=== PATIENT | male | born 1960 | race Caucasian/White ===

== ENCOUNTER 2017-12-18 20:17 | Inpatient (IN) | payer OTHER, MEDICAID ==
[~2017-12-18] VITALS: Ht 177.8 cm; Wt 59.0 kg
[2017-12-18] MEDS ORDERED: SODIUM CHLORIDE 0.9% 1,000 ML IV ONE (21:28)
[2017-12-18] MEDS ORDERED: INSULIN REGULAR (HUMULIN R) 300UNITS/3ML IV ONE (21:30)
[2017-12-18 22:15] LABS: BETA HYDROXYBUTYRATE 0.1 mMol/L (0.0-0.3); CHLORIDE 100 mEq/L (98-107); TROPONIN I 0.06 ng/mL (0.00-0.04)
[2017-12-18 22:47] LABS: HEMATOCRIT. 25.3 % (42.0-52.0); MEAN CORPUSCULAR HEMOGLOBIN 27.1 pg (28.0-32.0); MEAN CORPUSCULAR VOLUME 85.2 fL (80.0-94.0); MEAN PLATELET VOLUME 8.1 fl (7.4-10.4); PLATELET 252 x1000/uL (130-400); RED BLOOD CELL COUNT 2.97 mill/uL (4.7-6.1); RED CELL DISTRIBUTION WIDTH 18.9 % (11.6-14.6)
[2017-12-18 23:19] LABS: PLATELET ESTIMATE NORMAL
[2017-12-18] MEDS ORDERED: DEXTROSE 50% WATER 50ML SYRINGE IV NR (23:45)
[2017-12-18] MEDS ORDERED: SODIUM POLYSTYRENE SULFONATE 15 G/60 ML BOT PO NR (23:45)
[2017-12-18] MEDS ORDERED: CALCIUM CHLORIDE 1GM/10ML SYR IV NR (23:45)
[2017-12-18] MEDS ORDERED: ASPIRIN 325MG TABLET PO NR (23:45)
[2017-12-18] MEDS ORDERED: INSULIN REGULAR (HUMULIN R) 300UNITS/3ML IV NR (23:45)
[2017-12-18] MEDS ORDERED: SODIUM BICARBONATE 8.4% 1 MEQ/ML 50ML SYR IV NR (23:45)
[2017-12-19 10:57] VITALS: BP 154/49
[2017-12-19] MEDS ORDERED: ONDANSETRON HCL 4MG/2ML VIAL IV PRN (11:30)
[2017-12-19] MEDS ORDERED: HYDROCODONE/ACETAMINOPHEN 5/325MG TABLET PO PRN (11:30)
[2017-12-19] MEDS ORDERED: ACETAMINOPHEN 325MG TABLET PO PRN (11:30)
[2017-12-19] MEDS ORDERED: CLONIDINE 0.1MG TABLET PO PRN (11:30)
[2017-12-19] MEDS ORDERED: DEXTROSE 50% WATER 50ML SYRINGE IV PRN ×2 (11:45→13:15)
[2017-12-19 12:00] VITALS: BP 164/55
[2017-12-19] MEDS: ENOXAPARIN 30MG/0.3ML SYR SUBCUT SCH (12:24)
[2017-12-19] MEDS: BLOOD SUGAR DIAGNOSTIC STRIP TEST SCH ×3 (12:27→21:00)
[2017-12-19] MEDS ORDERED: INSULIN LISPRO 100 UNITS/ML SUBCUT SCH (12:50)
[2017-12-19] MEDS ORDERED: LANS30CA55 PO (13:31)
[2017-12-19] MEDS ORDERED: TRAM50TA3 PO (13:31)
[2017-12-19] MEDS ORDERED: AMLO10TA80 PO (13:31)
[2017-12-19] MEDS ORDERED: DOCU-150 PO (13:31)
[2017-12-19] MEDS ORDERED: METO-293 PO (13:31)
[2017-12-19] MEDS ORDERED: TERA2CAP4 PO (13:31)
[2017-12-19] MEDS ORDERED: MAGN400T26 PO (13:31)
[2017-12-19] MEDS ORDERED: MULT-1146 PO (13:31)
[2017-12-19] MEDS ORDERED: PROG1 PO (13:31)
[2017-12-19] MEDS ORDERED: ASPI-1159 PO (13:31)
[2017-12-19] MEDS ORDERED: PRED1TAB PO (13:31)
[2017-12-19] MEDS ORDERED: LABE300T PO (13:31)
[2017-12-19] MEDS ORDERED: CELL2 PO (13:31)
[2017-12-19] MEDS ORDERED: LANTUSUD SUBCUT (13:31)
[2017-12-19] MEDS ORDERED: OXYB5TAB11 PO (13:31)
[2017-12-19] MEDS ORDERED: INSU100I7 SQ (13:31)
[2017-12-19] MEDS ORDERED: METOCLOPRAMIDE HCL 10MG TABLET PO PRN ×2 (14:00→15:00)
[2017-12-19] MEDS ORDERED: OXYBUTYNIN CHLORIDE 5MG TABLET PO PRN (14:00)
[2017-12-19] MEDS ORDERED: TRAMADOL 50MG TABLET PO PRN (14:00)
[2017-12-19] MEDS: PREDNISONE 10MG TABLET PO SCH ×2 (15:03→17:05)
[2017-12-19] MEDS: LABETALOL HCL 300MG TABLET PO SCH (15:03)
[2017-12-19] MEDS: MYCOPHENOLATE MOFETIL 500MG TABLET PO SCH ×2 (15:03→23:37)
[2017-12-19] MEDS: TACROLIMUS 1MG CAPSULE PO SCH ×2 (15:03→23:36)
[2017-12-19] MEDS: ASPIRIN 81MG EC TABLET PO SCH (15:03)
[2017-12-19] MEDS: AMLODIPINE 10MG TABLET PO SCH (15:04)
[2017-12-19 16:00] VITALS: BP 137/46
[2017-12-19 16:01] LABS: TROPONIN I 0.07 ng/mL (0.00-0.04)
[2017-12-19] MEDS: DOCUSATE SODIUM 100MG CAPSULE PO SCH (17:05)
[2017-12-19] MEDS: MAGNESIUM OXIDE 400MG TABLET PO SCH (17:05)
[2017-12-19] MEDS: INSULIN LISPRO 100 UNITS/ML SUBCUT SCH ×2 (18:26→23:40)
[2017-12-19 20:30] VITALS: BP 134/47
[2017-12-19] MEDS ORDERED: INSULIN GLARGINE UD 100 UNITS/ML SYR SUBCUT SCH (22:00)
[2017-12-19 23:30] LABS: TROPONIN I 0.07 ng/mL (0.00-0.04)
[2017-12-20] VITALS (8 sets, daily range): BP systolic 139–166; BP diastolic 49–58
[2017-12-20] MEDS: LABETALOL HCL 300MG TABLET PO SCH ×3 (01:37→14:54)
[2017-12-20 05:56] LABS: HEMATOCRIT. 27.3 % (42.0-52.0); HEMOGLOBIN. 8.8 g/dL (14.0-18.0); MEAN CORPUSCULAR HEMOGLOBIN 27.4 pg (28.0-32.0); MEAN CORPUSCULAR VOLUME 84.6 fL (80.0-94.0); MEAN PLATELET VOLUME 8.5 fl (7.4-10.4); PLATELET 269 x1000/uL (130-400); RED BLOOD CELL COUNT 3.23 mill/uL (4.7-6.1); RED CELL DISTRIBUTION WIDTH 19.1 % (11.6-14.6)
[2017-12-20 06:33] LABS: T4 FREE 0.77 ng/dL (0.76-1.46)
[2017-12-20] MEDS ORDERED: LANSOPRAZOLE 30MG DR CAPSULE PO SCH (07:20)
[2017-12-20] MEDS: BLOOD SUGAR DIAGNOSTIC STRIP TEST SCH ×3 (07:57→17:14)
[2017-12-20] MEDS: MAGNESIUM OXIDE 400MG TABLET PO SCH ×2 (08:46→16:37)
[2017-12-20] MEDS: TACROLIMUS 1MG CAPSULE PO SCH ×2 (08:46→20:55)
[2017-12-20] MEDS: MYCOPHENOLATE MOFETIL 500MG TABLET PO SCH ×2 (08:46→20:57)
[2017-12-20] MEDS: DOCUSATE SODIUM 100MG CAPSULE PO SCH ×2 (08:46→16:37)
[2017-12-20] MEDS: ASPIRIN 81MG EC TABLET PO SCH (08:46)
[2017-12-20] MEDS: PREDNISONE 10MG TABLET PO SCH ×2 (08:47→16:37)
[2017-12-20] MEDS: AMLODIPINE 10MG TABLET PO SCH (08:47)
[2017-12-20] MEDS: INSULIN LISPRO 100 UNITS/ML SUBCUT SCH ×3 (08:48→18:29)
[2017-12-20] MEDS: ENOXAPARIN 30MG/0.3ML SYR SUBCUT SCH (08:48)
[2017-12-20 16:43] LABS: PLATELET ESTIMATE NORMAL
== END 2017-12-20 22:10 | DRG 438 ==
LOC: ER 20:39 → EDBEDREQ 23:50 → EDBEDREQTM 23:50 → EDBEDREQSVC 23:55 → 6WST 12-19 00:35 → ENRESERV 12-19 06:56
PROVIDERS: ADMIT Internal Medicine; ATTEND Internal Medicine
PROC: 5A1D70Z Performance of Urinary Filtration, Intermittent, Less than 6 Hours Per Day (ICD-10-PCS; principal; 2017-12-19)
PROC: 5A1D70Z Performance of Urinary Filtration, Intermittent, Less than 6 Hours Per Day (ICD-10-PCS; 2017-12-20)
DX: K85.90 Acute pancreatitis without necrosis or infection, unspecified (principal); N18.6 End stage renal disease; E11.22 Type 2 diabetes mellitus with diabetic chronic kidney disease; I12.0 Hypertensive chronic kidney disease with stage 5 chronic kidney disease or end stage renal disease; E87.1 Hypo-osmolality and hyponatremia; Z94.0 Kidney transplant status; E11.65 Type 2 diabetes mellitus with hyperglycemia; E87.5 Hyperkalemia; F03.90 Unspecified dementia, unspecified severity, without behavioral disturbance, psychotic disturbance, mood disturbance, and anxiety; D64.9 Anemia, unspecified; H54.7 Unspecified visual loss; I25.10 Atherosclerotic heart disease of native coronary artery without angina pectoris; Z99.2 Dependence on renal dialysis; Z79.4 Long term (current) use of insulin
CPT/HCPCS: 36415; 71045; 80048; 80053; 80061; 82010; 82550; 82962; 83690; 84132; 84439; 84443; 84484; 85025; 93005; 96374; 96375; 97116; 97162; 97166; 99291; J1650; J1815; J3490; J7030; J7507; J7512; J7517